=== PATIENT | female | born 1985 | race Caucasian/White ===

== ENCOUNTER 2017-08-31 09:45 | Day surgery (SDC) | payer OTHER ==
[~2017-08-31 09:45] MED LIST: Buffered Lidocaine 0.9% SYRIN* 5 ML/SYR SYRINGE INTRADERM ONE; Dexamethasone IV* 4 MG/ML 1 ML (4 MG) IV SLOW PU ONE; Famotidine IV* 10 MG/ML 2 ML (20 mg) IV ONE
[2017-08-31] MEDS ORDERED: Dexamethasone IV* 4 MG/ML 1 ML (4 MG) ONE (10:21)
[2017-08-31] MEDS ORDERED: Famotidine IV* 10 MG/ML 2 ML (20 mg) ONE (10:21)
[2017-08-31] MEDS ORDERED: Bupivacaine 0.25% SDV* 30 ML ONE (11:15)
[2017-08-31] MEDS ORDERED: Lidocaine 2% PF * 5 ML VIAL ONE (11:25)
[2017-08-31] MEDS ORDERED: Propofol* 10 MG/ML 20 ML BTL IV PUSH ONE (11:25)
[2017-08-31] MEDS ORDERED: Ketorolac INJ* 30 MG/ML 1 ML VIAL ONE (11:27)
[2017-08-31] MEDS ORDERED: Ondansetron INJ* 2 MG/ML VIAL ONE (11:27)
[2017-08-31] MEDS ORDERED: Midazolam* 1 MG/ML 2 ML VIAL (2 MG) ONE ×2 (11:28→11:29)
[2017-08-31] MEDS ORDERED: fentaNYL* 50 MCG/ML 2 ML VIAL (100 MCG VIAL) ONE (11:29)
[2017-08-31] MEDS ORDERED: Ondansetron INJ* 2 MG/ML VIAL IV PRN (11:54)
[2017-08-31] MEDS ORDERED: oxyCODONE/Acetamin 5/325 MG* TAB PO PRN (11:54)
[2017-08-31] MEDS ORDERED: DiMENhydriNATE IV* 50 MG/ML VIAL IV PUSH PRN (11:54)
[2017-08-31 12:23] VITALS: BP 119/71
--- NOTE | 2017-09-02 05:08 | OP ---
OPERATIVE NOTE: DATE OF OPERATION: 08/31/17 DATE OF : 89 SURGEON: Orville Bhatia MD [employer] OPERATOR: KRISTA Pemberton ANESTHESIOLOGIST: Dr. Swan. ANESTHESIA: Local MAC. PRE-OP DIAGNOSIS: Left de Quervain's tenosynovitis POST-OP DIAGNOSIS: Left de Quervain's tenosynovitis OPERATIVE PROCEDURE: Left wrist de Quervain's release INDICATIONS: Belle has severe left de Quervain's tenosynovitis. She previously had some sort of a vascular procedure done and has a scar of that radial wrist, but she did not have a surgical releas e of the tendons, there was a blood clot or something vascular that was excised, she is not able to t ell me exactly what. We talked about her treatment options, she wanted to proceed with de Quervain's release. We talked about risks and benefits. EBL: 2 mL COMPLICATIONS: None. FINDINGS: Severe tenosynovitis including an accessory compartment in the first dorsal compartment te ndon sheath. DESCRIPTION OF PROCEDURE: Belle was seen in the preoperative holding area. The correct side, sit e and procedure were identified. We came back to the operating room. She got some anesthesia and th en I infiltrated the operative area with 0.25% plain Marcaine. The arm was then prepped and draped i n the usual fashion and a time-out was performed. I used a prior longitudinal incision and extended this another centimeter. Dissection was carried rima n, the radial sensory nerve was identified and retracted. The first dorsal compartment sheath was rel eased along its dorsal aspect in line with the tendons. There was quite a bit of fraying of the tendo n there and abundant tenosynovitis, this was all excised. There was an accessory compartment, the se ptum which dividing the compartments was excised. Once the nerves were completely released proximall y and distally, we irrigated out the wounds. Skin was closed with 0 Monocryl suture and Steri-Strips . The wound was dressed with 4 x 4 sterile Webril and an Abdirashid bandage. The tourniquet was deflated. She was taken to the recovery room in stable condition. [id number]/[facility] #: [id number]
== END 2017-08-31 16:46 | disposition home or self-care (01) ==
LOC: OREAST 09:45
PROVIDERS: ATTEND Orthopaedic Surgery Hand Surgery
DX: M65.4 Radial styloid tenosynovitis [de Quervain] (principal); J45.909 Unspecified asthma, uncomplicated; E03.9 Hypothyroidism, unspecified; F32.9 Major depressive disorder, single episode, unspecified; F41.9 Anxiety disorder, unspecified; Z88.0 Allergy status to penicillin; F17.200 Nicotine dependence, unspecified, uncomplicated; E66.9 Obesity, unspecified; Z68.35 Body mass index [BMI] 35.0-35.9, adult
CPT/HCPCS: 81025; J1100; J1885; J2250; J2405; J2704; J3010